=== PATIENT | male | born 1985 | race African-American/Black ===

== ENCOUNTER 2017-10-28 00:30 | Emergency (ER) | payer SELFPAY ==
[~2017-10-28] VITALS: Ht 190.5 cm; Wt 118.0 kg
[2017-10-28 00:38] VITALS: BP 170/96; PULSE 73; RESP 18; TEMP 98.8; O2SAT 100
[2017-10-28] MEDS ORDERED: BACT800T5 PO (00:57)
[2017-10-28] MEDS ORDERED: IBUP1TAB7 PO (00:57)
[2017-10-28] MEDS ORDERED: CEPH-460 PO (00:57)
[2017-10-28] MEDS ORDERED: NORC5TAB PO (00:57)
--- NOTE | 2017-10-28 00:57 | PD ---
HPI Chief Complaint: Skin Problem Time Seen by Provider: 00:44 Travel History International Travel<30 days: No Contact w/Intl Traveler<30days: No Traveled to known affect area: No History of Present Illness HPI 32-year-old male presents emergency department for evaluation of painful swelling surrounding the nailbed of the lateral left third digit. Patient states that he bites his nails. He noticed a hangnail 2 or 3 days ago. He chewed it and noticed swelling along the lateral aspect of the nail yesterday that has increased today. Is very painful. It is constant, throbbing, moderate in severity pain. Patient denies any other injury. No fever chills. No other symptoms to report. PFSH Past Medical History Medical History: Denies Significant Hx Diminished Hearing: No Tetanus Vaccination: Unknown Influenza Vaccination: No Past Surgical History Surgical History: No Previous Surgery Social History Alcohol Use: No Tobacco Use: No Substance Use: No Allergies-Medications (Allergen,Severity, Reaction): Coded Allergies: No Known Allergies (Verified Allergy, Unknown, 10/28/17) Reported Meds & Prescriptions Reported Meds & Active Scripts Active [place] (Hydrocodone-Acetaminophen) 5 Mg-325 Mg Tab 1 Tab PO Q6H PRN Ibuprofen 800 Mg Tab 800 Mg PO Q8H PRN Keflex (Cephalexin) 500 Mg Capsule 500 Mg PO QID 5 Days Bactrim DS (Sulfamethoxazole-Trimethoprim) 800-160 Mg Tab 1 Tab PO BID Review of Systems Except as stated in HPI: all other systems reviewed are Neg Physical Exam Narrative GENERAL: Well-nourished, well-developed male patient in no acute distress.. SKIN: Focused skin assessment warm/dry. There is slight edema and fluctuance along the lateral aspect of the left third nail. No active drainage. Cap refill within normal limits. HEAD: Normocephalic. EYES: No scleral icterus. No injection or drainage. NECK: Supple, trachea midline. No JVD or lymphadenopathy. CARDIOVASCULAR: Regular rate and rhythm without murmurs, gallops, or rubs. RESPIRATORY: Breath sounds equal bilaterally. No accessory muscle use. Data Data Last Documented VS Vital Signs Date Time Temp Pulse Resp B/P (MAP) Pulse Ox O2 Delivery O2 Flow Rate FiO2 10/28/17 00:38 98.8 73 18 170/96 (120) 100 Orders Orders Lidocaine 1% Inj (Xylocaine 1% Inj) (10/28/17 01:00) Wound Culture And Gram Stain (10/28/17 00:47) Ibuprofen (Motrin) (10/28/17 01:00) Acetamin-Hydrocod 325-5 Mg ([place] 5-325 (10/28/17 01:30) Sulfamet-Trimeth Ds 800-160 Mg (Bactrim (10/28/17 01:30) Cephalexin (Keflex) (10/28/17 01:30) Ed Discharge Order (10/28/17 01:27) [facility] Medical Decision Making Medical Screen Exam Complete: Yes Emergency Medical Condition: Yes Medical Record Reviewed: Yes Differential Diagnosis Paronychia versus ingrown nail versus hangnail Narrative Course 32-year-old male presents emergency department for evaluation of painful swelling along the lateral aspect of the left third digit. Physical exam is consistent with paronychia. I&D is complete. Patient is treated for pain, given first dose of antibiotics. He is encouraged to follow-up with primary care provider and return immediately with any acute worsening symptoms. Procedures Procedure Narrative INCISION AND DRAINAGE OF ABSCESS: The area was prepped and was sterilely draped. A subcutaneous wheal of 1 % Xylocaine without with a total number 1 mL was used to anesthetize the area. The area was properly anesthetized. A number 11 scalpel was used to make a 0.5-cm incision across the area of the abscess. Cultures were obtained. The abscess was drained an irrigated with normal saline. Sterile dressing was applied. Patient tolerated this well. Diagnosis Primary Impression: Paronychia of finger Qualified Codes: L03.011 - Cellulitis of right finger Referrals: Primary Care Physician Patient Instructions: General Instructions, Paronychia (ED) Additional Instructions: Epson salt soaks 3 times a day Elevate to reduce pain Follow-up with a primary care provider Return immediately with acute worsening symptoms Med/Other Pt SpecificInfo: Prescription(s) given Scripts Hydrocodone-Acetaminophen ([place]) 5 Mg-325 Mg Tab 1 TAB PO Q6H Y for PAIN GREATER THAN 6, #12 TAB 0 Refills Prov: Camryn Irving 10/28/17 Ibuprofen (Ibuprofen) 800 Mg Tab 800 MG PO Q8H Y for Pain/Inflammation, #30 TAB 0 Refills Prov: Camryn Irving 10/28/17 Cephalexin (Keflex) 500 Mg Capsule 500 MG PO QID for Infection for 5 Days, CAP 0 Refills Prov: Camryn Irving 10/28/17 Sulfamethoxazole-Trimethoprim (Bactrim DS) 800-160 Mg Tab 1 TAB PO BID for Infection, #20 TAB 0 Refills Prov: Camryn Irving 10/28/17 Disposition: 01 DISCHARGE HOME Condition: Stable Camryn Irving Oct 28, 2017 00:57
[2017-10-28] MEDS ORDERED: IBUPROFEN 800 MG TAB PO ONE (01:00)
[2017-10-28] MEDS ORDERED: LIDOCAINE HCL 1% 30 ML VIAL INFIL ONE (01:00)
[2017-10-28] MEDS ORDERED: CEPHALEXIN MONOHYDRATE 500 MG CAP PO ONE (01:30)
[2017-10-28] MEDS ORDERED: SULFAMETHOXAZOLE-TRIMETHOPRIM DS 800-160 MG TAB PO ONE (01:30)
[2017-10-28] MEDS ORDERED: ACETAMINOPHEN/HYDROcodone 325 MG/5 MG TAB PO ONE (01:30)
== END 2017-10-28 01:42 | disposition home or self-care (01) ==
LOC: NEPD 00:30
DX: L03.012 Cellulitis of left finger (principal); B96.89 Other specified bacterial agents as the cause of diseases classified elsewhere; B95.61 Methicillin susceptible Staphylococcus aureus infection as the cause of diseases classified elsewhere; B95.1 Streptococcus, group B, as the cause of diseases classified elsewhere; B96.3 Hemophilus influenzae [H. influenzae] as the cause of diseases classified elsewhere
CPT/HCPCS: 10060; 86403; 87070; 87077; 87147; 87184; 87185; 87186